=== PATIENT | female | born 1980 | race African-American/Black ===

== ENCOUNTER 2017-07-22 02:08 | Emergency (ER) | payer MEDICAID ==
[~2017-07-22 02:08] MED LIST: METR0.7528 VAGINAL; PREN1CAP7 PO
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
[2017-07-27 14:55] LABS: BATH SALTS (MDPV) UR NEG (NEG); ECSTASY (MDMA) UR NEG (NEG); HEROIN (6-ACETYLMORPHINE) UR NEG (NEG); K2 SPICE UR NEG (NEG); OBMETHADONE UR NEG (NEG); PHENCYCLIDINE URINE NEG (NEG)
[2017-07-27 14:56] LABS: GABAPENTIN UR NEG (NEG); HYDROMORPHONE U NEG (NEG)
[2017-07-31] MEDS ORDERED: ZANT150T2 PO (13:36)
[2017-07-31] MEDS ORDERED: [UNRECOGNIZED DRUG - CODE] IM (14:39)
[2017-08-21] MEDS ORDERED: [UNRECOGNIZED DRUG - CODE] IM (13:43)
[2017-09-03] MEDS ORDERED: [UNRECOGNIZED DRUG - CODE] IM (11:22)
== END 2017-07-22 03:30 | disposition home or self-care (01) ==
LOC: HOBED 02:08
DX: O99.612 Diseases of the digestive system complicating pregnancy, second trimester (principal); K42.9 Umbilical hernia without obstruction or gangrene; O34.219 Maternal care for unspecified type scar from previous cesarean delivery; Z3A.22 22 weeks gestation of pregnancy
CPT/HCPCS: 76815; 80307; 99284; G0481

== ENCOUNTER → 2017-08-14 | Outpatient (CLI) | payer MEDICAID ==
[~2017-08-14] MED LIST changes: -METR0.7528 VAGINAL; +ZANT150T2 PO; +[UNRECOGNIZED DRUG - CODE] IM
== END ==
LOC: HPND 12:47
PROVIDERS: ATTEND Obstetrics & Gynecology
DX: O09.522 Supervision of elderly multigravida, second trimester (principal); O99.332 Smoking (tobacco) complicating pregnancy, second trimester; O35.1XX0 Maternal care for (suspected) chromosomal abnormality in fetus, not applicable or unspecified
CPT/HCPCS: 76811

== ENCOUNTER 2017-11-14 08:54 | Inpatient (IN) | payer MEDICAID ==
[2017-11-14] VITALS (104 sets, daily range): BP systolic 107–187; BP diastolic 63–103; PULSE 52–102; RESP 18–22; TEMP 97.4–99.2; O2SAT 93–100
[~2017-11-14 08:54] MED LIST changes: +CIME300S4 PO; -[UNRECOGNIZED DRUG - CODE] IM
[2017-11-14] MEDS ORDERED: METHYLERGONOVINE MALEATE 0.2 MG/ML VIAL ONE (09:20)
[2017-11-14] MEDS ORDERED: LACTATED RINGER'S 1000 ML INJ 1,000 ML IV ONE (09:26)
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
[2017-11-14] MEDS: LACTATED RINGER'S 1000 ML INJ 1,000 ML IV SCH ×5 (09:56→23:16)
[2017-11-14 09:57] LABS: AUTOMATED NEUTROPHIL # 3.6 TH/MM3 (1.8-7.7); BASOPHIL % 0.3 % (0.0-2.0); EOSINOPHIL # 0.1 TH/MM3 (0-0.4); HEMATOCRIT 29.9 % (35.0-46.0); HEMOGLOBIN 9.7 GM/DL (11.6-15.3); LYMPH % 24.6 % (9.0-44.0); LYMPHOCYTE # 1.4 TH/MM3 (1.0-4.8); MEAN CELL VOLUME 88.2 FL (80.0-100.0); MEAN CORPUSCULAR HEMOGLOBIN 28.5 PG (27.0-34.0); MEAN CORPUSCULAR HGB CONC 32.4 % (32.0-36.0); MEAN PLATELET VOLUME 9.3 FL (7.0-11.0); MONO % 9.7 % (0.0-8.0); MONOCYTE # 0.5 TH/MM3 (0-0.9); NEUT % 64.4 % (16.0-70.0); PLATELET COUNT 168 TH/MM3 (150-450); RED BLOOD COUNT 3.39 MIL/MM3 (4.00-5.30); RED CELL DISTRIBUTION WIDTH 13.8 % (11.6-17.2); WHITE BLOOD COUNT 5.5 TH/MM3 (4.0-11.0)
[2017-11-14 09:59] LABS: BACTERIA, URINE RARE /hpf; BILIRUBIN, URINE NEG (NEG); BLOOD, URINE NEG (NEG); GLUCOSE,URINE NEG (NEG); HYALINE CAST, URINE 1 /lpf (RARE); KETONE, URINE NEG (NEG); MUCUS URINE FEW /lpf (OCC); NITRITE,URINE NEG (NEG); SQUAMOUS EPITHELIAL CELL URINE 8 /hpf (0-5); URINE COLOR YELLOW (YELLW/STRAW); URINE LEUKOCYTE ESTERASE TRACE (NEG)
[2017-11-14] MEDS ORDERED: MORPHINE SULFATE PF 5 MG/10 ML VIAL ONE (10:25)
[2017-11-14] MEDS ORDERED: ACETAMINOPHEN 1000 MG/100 ML 100 ML IV ONE (10:25)
[2017-11-14] MEDS ORDERED: ceFAZolin 2 GM PREMIX 50 ML IV SCH (10:30)
[2017-11-14] MEDS ORDERED: CITRIC ACID-SODIUM CITRATE LIQ 30 ML UDC PO SCH (11:00)
[2017-11-14] MEDS ORDERED: DEXAMETHASONE SOD PHOS 4 MG/ML VIAL IV ONE (12:00)
[2017-11-14] MEDS ORDERED: ONDANSETRON HCL 4 MG/2 ML VIAL IV ONE (12:00)
[2017-11-14] MEDS ORDERED: OXYTOCIN 10 UNIT/ML AMP IV ONE (12:00)
[2017-11-14] MEDS ORDERED: ePHEDrine/NS 25 MG/5 ML SYRINGE IV ONE (12:00)
[2017-11-14] MEDS ORDERED: LACTATED RINGER'S 1000 ML INJ 2,000 ML IV ONE (12:00)
--- NOTE | 2017-11-14 12:06 | PD.OB.DELI ---
Procedure Note Section Procedure Pre Op Diagnosis: (1) 39 weeks gestation of (2) Advanced maternal age in multigravida (3) Cocaine abuse affecting in third trimester (4) Tobacco use affecting in third trimester, antepartum (5) Previous delivery affecting , antepartum (6) Alcohol abuse affecting in third trimester (7) with plans to adopt out baby (8) Acquired syphilis Post Op Diagnosis: Performed by Shanel Valentino Procedure: Repeat Low Transverse Sec, Other (bilateral midsegment salpingectomy) Indication for delivery: Desired elective repeat Informed consent obtained: For anesthesia, For procedure Confirmed correct: Site, Time-out taken Anesthesia: Spinal Medication prior to procedure: As documented in eMAR, Antibiotics, IV Urinary catheter: Inserted using sterile technique, To dependent drainage Sterile preparation: Duraprep, With drapes to expose affected area Position: Supine with wedge to left side Operative Features Skin Incision: Pfannenstiel Uterine Incision: Low transverse w/knife / blunt ext Membranes Ruptured: Artificially, Appearance of fluid (clear) Presentation: Occiput anterior Delivery date: Nov 14, 2017 Delivery time: 11:07 Delivery of infant: Uneventful Infant: Female One Minute : 8 Five Minute : 9 Weight: 3260gm Status of infant: Viable Placenta delivered: Intact Medications: Oxytocin Estimated blood loss: 600cc Procedure tolerated: Well Maternal Condition: Stable Condition: Stable Shanel Valentino MD Nov 14, 2017 12:06
[2017-11-14] MEDS ORDERED: OXYTOCIN 30 UNITS-500ML PREMIX 500 ML IV ONE (12:15)
[2017-11-14] MEDS ORDERED: DOCUSATE SODIUM 50 MG/SENNA 8.6 MG TAB PO PRN (12:15)
[2017-11-14] MEDS ORDERED: SODIUM CHLORIDE 0.9% FLUSH 10 ML FLUSH IV FLUSH PRN ×2 (12:15→16:15)
[2017-11-14] MEDS ORDERED: oxyCODONE/ACETAMINOPHEN 5 MG/325 MG TAB PO PRN (12:15)
[2017-11-14] MEDS ORDERED: SIMETHICONE 80 MG CHEWABLE TAB PO PRN (12:15)
[2017-11-14] MEDS ORDERED: ACETAMINOPHEN 325 MG TAB PO PRN (12:15)
[2017-11-14] MEDS ORDERED: KETOROLAC TROMETHAMINE 60 MG/2 ML (IM) VIAL IM PRN (12:15)
[2017-11-14] MEDS ORDERED: ONDANSETRON HCL 4 MG/2 ML VIAL IV PUSH PRN (12:15)
[2017-11-14 12:33] LABS: RPR SCREEN FOR REFLEX NON-REACTIVE (NON-REACTVE)
--- NOTE | 2017-11-14 12:39 | MP ---
cc: SYL PERALTA M.D. DATE OF SURGERY 11/14/2017 SURGEON Syl Peralta MD PREOPERATIVE DIAGNOSES 1. 39 weeks gestation. 2. Previous section x3. 3. Advanced maternal age and multigravida. 4. Cocaine abuse affecting . 5. Tobacco use affecting . 6. Alcohol abuse affecting third trimester . 7. with plans to put the baby up for adoption. 8. Acquired syphilis treated x1 the during . POSTOPERATIVE DIAGNOSES 1. 39 weeks gestation. 2. Previous section x3. 3. Advanced maternal age and multigravida. 4. Cocaine abuse affecting . 5. Tobacco use affecting . 6. Alcohol abuse affecting third trimester . 7. with plans to put the baby up for adoption. 8. Acquired syphilis treated x1 the during . PROCEDURE 1. Repeat low transverse section without extension. 2. Bilateral mid-segment salpingectomy. ANESTHETIC Spinal. MEDICATIONS 2 grams of Ancef given preoperatively. COMPLICATIONS No complications. DRAINS Marshall to gravity. PATHOLOGY No pathology. FINDINGS 1. Normal uterus, tubes and ovaries. 2. Dense uterine adhesions noted from the lower uterine segment to the fascia. 3. female. Apgars were 8 and 9. Weight was 3260 grams. Vertex position with clear amniotic fluid. DESCRIPTION OF PROCEDURE The patient was taken back to the operating room, prepped and draped in sterile fashion, placed in dorsal supine position with a wedge to her left side. After adequate anesthetic was obtained, the patient had a very large, widened vertical scar that was removed from her skin and then incision was taken down to the fascia which was extended superiorly and inferiorly. The vesicouterine peritoneum was entered, extended superiorly and inferiorly also taking care to avoid traumatization to the bowel and the bladder. Large dense adhesions were noted in the lower segment which was taken down with the Bovie and with sharp dissection and the vesicouterine peritoneum was identified and noted to be well away from the field. A transverse hysterotomy incision was made bluntly, extended bilaterally. The 's head was delivered to the operative field after bag of water was ruptured, clear fluid was obtained. The rest of the body was delivered. The was handed off to the resuscitation team for subsequent care. 45-second cord clamping delay before clamping of the cord. Placenta was delivered intact spontaneously. The endometrial cavity was curetted with a moist laparotomy sponge. The hysterotomy incision was repaired using running locking #1 chromic suture. The large density lesions across the lower uterine segment had caused some bleeding into the serosa and the myometrium which was closed using running locking sutures of chromic. Attention was then directed to the fallopian tubes and, when a window was made in the mesosalpinx, two #1 chromic sutures were placed and the intervening 2-cm segment was removed. Good hemostasis was noted at this time. The patient had some oozing from the peritoneum from the takedown of adhesions. It was made hemostatic using the Bovie as well as Frandy placed topically. The fascia was closed with a #1 PDS, subcutaneous tissue was made hemostatic with the Bovie. Because of the large scar removal, some undermining of the skin bilaterally was undertaken so that the skin could closed without excessive tension. Plain gut was placed into the subcutaneous tissue to bring it together and then nasra were placed into the skin. The patient tolerated the procedure well. She has taken back to the recovery room good condition. MD HOMERO Hernandez/JOSE /11:55 AM /12:12 PM
[2017-11-14] MEDS ORDERED: OXYTOCIN 30 UNITS-500ML PREMIX 500 ML ONE (12:50)
[2017-11-14] MEDS ORDERED: EPIDURAL-DO NOT ADMINISTER ANTICOAGULANTS PRN (14:00)
[2017-11-14] MEDS ORDERED: EPIDURAL-DIPHENHYDRAMINE HCL 50 MG/ML VIAL IV PUSH PRN (14:00)
[2017-11-14] MEDS ORDERED: EPIDURAL-DIPHENHYDRAMINE HCL 50 MG CAP PO PRN (14:00)
[2017-11-14] MEDS ORDERED: EPIDURAL-NALOXONE HCL 0.4 MG/ML AMP IV PUSH PRN (14:00)
[2017-11-14] MEDS ORDERED: EPIDURAL-NO SYSTEMIC NARCOTICS PRN (14:00)
[2017-11-14] MEDS ORDERED: CALCIUM GLUCONATE 10% 1 GM/10 ML VIAL IV PUSH PRN (16:15)
[2017-11-14] MEDS ORDERED: MAGNESIUM SULFATE 4 GM PREMIX 100 ML IV ONE (16:15)
--- NOTE | 2017-11-14 16:49 | HHI.PR ---
Addendum to Inpatient Note Addendum Reason: Additional Documentation Additional Information Patient evaluated at bedside, noted to have BPs 150s/90s. She stated she felt dizzy earlier but this has resolved. No chest pain, shortness of breath. Notes legs might be swollen. Lungs clear to auscultation RRR no m/g/r LE not swollen out of proportion Reflexes patellae normal A/P: 37 year old [id number] post operative Day 0 <12hr, with elevated BPs, dizziness. Hx substance use complicated picture. Suspect pre-eclampsia vs chronic HTN vs acute substance withdrawal Will transfer back to for treatment of possible pre-E. CBC, CMP, uric acid ordered. Labetalol 20 mg IV q10 mins PRN SBP >150 DBP > 100 and will consider hydralizine 10 mg IV q20 m if BP does not respond to this. Will start Mg sulfate 4 gm IV x 1 at 300 ml/hr with 2gm/hr thereafter Close VS monitoring Cotrney Delgado MD R2 Nov 14, 2017 16:49
[2017-11-14 18:03] LABS: ALBUMIN 2.9 GM/DL (3.4-5.0); ALT (GPT) 56 U/L (10-53); AST (GOT) 54 U/L (15-37); BLOOD UREA NITROGEN 3 MG/DL (7-18); CHLORIDE 101 MEQ/L (98-107); CREATININE 0.38 MG/DL (0.50-1.00); GLOMERULAR FILTRATION RATE 232 ML/MIN (>89); GLUCOSE,RANDOM 88 MG/DL (74-106); SODIUM (NA) 137 MEQ/L (136-145)
[2017-11-14 18:06] LABS: ALKALINE PHOSPHATASE 92 U/L (45-117); TOTAL BILIRUBIN ADULT 0.7 MG/DL (0.2-1.0); TOTAL PROTEIN 7.6 GM/DL (6.4-8.2)
[2017-11-14] MEDS: MAGNESIUM SULFATE 40 GM PREMIX 1,000 ML IV SCH (18:07)
[2017-11-14] MEDS ORDERED: POTASSIUM CHLORIDE 10 MEQ CONTROLLED RELEASE TAB PO ONE (18:45)
[2017-11-14] MEDS: oxyCODONE/ACETAMINOPHEN 5 MG/325 MG TAB PO PRN (20:37)
[2017-11-14] MEDS: SODIUM CHLORIDE 0.9% FLUSH 10 ML FLUSH IV FLUSH SCH ×2 (21:00)
[2017-11-14] MEDS ORDERED: OXYTOCIN 30 UNITS-500ML PREMIX 500 ML IV PRN (22:15)
[2017-11-14] MEDS: LORazepam 2 MG/ML VIAL IV PUSH PRN (22:28)
[2017-11-15] VITALS (147 sets, daily range): BP systolic 119–162; BP diastolic 61–119; PULSE 63–98; RESP 16–20; TEMP 97.4–97.9; O2SAT 84–100
[2017-11-15] MEDS: LACTATED RINGER'S 1000 ML INJ 1,000 ML IV SCH (03:10)
[2017-11-15] MEDS: oxyCODONE/ACETAMINOPHEN 5 MG/325 MG TAB PO PRN ×2 (04:21→20:22)
[2017-11-15 05:53] LABS: AUTOMATED NEUTROPHIL # 5.9 TH/MM3 (1.8-7.7); BASOPHIL % 0.2 % (0.0-2.0); EOSINOPHIL % 0.6 % (0.0-4.0); HEMATOCRIT 30.4 % (35.0-46.0); HEMOGLOBIN 9.8 GM/DL (11.6-15.3); LYMPH % 15.6 % (9.0-44.0); LYMPHOCYTE # 1.2 TH/MM3 (1.0-4.8); MEAN CELL VOLUME 88.2 FL (80.0-100.0); MEAN CORPUSCULAR HEMOGLOBIN 28.5 PG (27.0-34.0); MEAN CORPUSCULAR HGB CONC 32.4 % (32.0-36.0); MEAN PLATELET VOLUME 9.4 FL (7.0-11.0); MONO % 5.2 % (0.0-8.0); MONOCYTE # 0.4 TH/MM3 (0-0.9); NEUT % 78.4 % (16.0-70.0); PLATELET COUNT 168 TH/MM3 (150-450); RED BLOOD COUNT 3.44 MIL/MM3 (4.00-5.30); RED CELL DISTRIBUTION WIDTH 13.4 % (11.6-17.2); WHITE BLOOD COUNT 7.5 TH/MM3 (4.0-11.0)
--- NOTE | 2017-11-15 08:06 | HHI.OB ---
Subjective Post Operative Day: 1 Remarks Postoperative day # 1. AFVSS overnight. BPs 120s/80s on magnesium. On magnesium since 5:30pm yesterday for elevated BPs and dizziness. Noted to have respiratory distress on re-evaluation ~0800 today, with patient stating she felt like something was in her chest. She has felt well throughout the night and up to this point. Lungs showing crackles bilaterally notable at midlung and below. Incision not draining. Decreased lochia. Denies dysuria. No breast tenderness. Baby was given up for adoption. No nausea or vomiting. Patient has not yet had a bowel movement. OAmbulating well. Denies calf pain. Objective Vitals/I&O Vital Signs Date Time Temp Pulse Resp B/P (MAP) Pulse Ox O2 Delivery O2 Flow Rate FiO2 11/15/17 07:46 86 147/93 (111) 11/15/17 07:45 91 86 11/15/17 07:21 97.5 18 11/15/17 07:20 75 98 11/15/17 07:00 78 133/85 (101) 11/15/17 07:00 19 11/15/17 06:00 74 134/87 (103) 11/15/17 05:56 18 11/15/17 05:30 18 11/15/17 05:11 73 134/88 (103) 11/15/17 05:00 78 20 11/15/17 04:10 90 97 11/15/17 04:05 94 98 11/15/17 04:01 96 120/61 (80) 11/15/17 04:00 20 11/15/17 04:00 93 100 11/15/17 03:55 71 98 11/15/17 03:50 69 98 11/15/17 03:45 70 98 11/15/17 03:40 67 97 11/15/17 03:35 66 96 11/15/17 03:30 66 97 11/15/17 03:25 65 98 11/15/17 03:20 65 100 11/15/17 03:15 83 99 11/15/17 03:10 84 100 11/15/17 03:05 69 100 11/15/17 03:00 65 20 143/81 (101) 100 11/15/17 03:00 65 11/15/17 02:55 69 100 11/15/17 02:50 65 100 11/15/17 02:45 67 99 11/15/17 02:40 65 99 11/15/17 02:35 66 99 11/15/17 02:30 89 100 11/15/17 02:25 98 100 11/15/17 02:20 64 99 11/15/17 02:15 63 99 11/15/17 02:10 63 99 11/15/17 02:05 64 99 11/15/17 02:00 66 11/15/17 02:00 16 11/15/17 02:00 63 123/83 (96) 99 11/15/17 01:55 63 99 11/15/17 01:50 63 99 11/15/17 01:45 66 99 11/15/17 01:40 66 99 11/15/17 01:35 64 99 11/15/17 01:30 63 99 11/15/17 01:25 65 98 11/15/17 01:20 66 98 11/15/17 01:15 70 99 11/15/17 01:10 68 98 11/15/17 01:05 69 98 11/15/17 01:00 66 18 119/78 (92) 99 11/15/17 01:00 72 11/15/17 00:55 66 99 11/15/17 00:50 68 98 11/15/17 00:45 66 99 11/15/17 00:40 66 99 11/15/17 00:35 66 99 11/15/17 00:30 66 99 11/15/17 00:25 69 99 11/15/17 00:20 66 99 11/15/17 00:15 67 100 11/15/17 00:10 71 100 11/15/17 00:05 74 100 11/15/17 00:02 71 142/97 (112) 11/15/17 00:01 71 162/98 (119) 11/15/17 00:00 97.4 11/15/17 00:00 20 11/15/17 00:00 85 100 11/14/17 23:55 73 99 11/14/17 23:50 70 96 11/14/17 23:45 71 97 11/14/17 23:40 70 96 11/14/17 23:35 71 98 11/14/17 23:30 74 96 11/14/17 23:25 74 96 11/14/17 23:20 71 99 11/14/17 23:15 74 97 11/14/17 23:10 74 96 11/14/17 23:05 72 93 11/14/17 23:00 73 149/78 (101) 93 11/14/17 23:00 70 11/14/17 22:55 75 93 11/14/17 22:50 75 97 11/14/17 22:45 82 95 11/14/17 22:40 73 99 11/14/17 22:35 72 100 11/14/17 22:34 20 11/14/17 22:30 88 98 11/14/17 22:25 84 97 11/14/17 22:15 86 98 11/14/17 22:10 93 98 11/14/17 22:05 80 97 11/14/17 22:00 18 11/14/17 22:00 79 11/14/17 22:00 78 142/89 (106) 100 11/14/17 21:55 87 100 11/14/17 21:55 87 100 11/14/17 21:50 79 100 11/14/17 21:45 83 100 11/14/17 21:40 94 96 11/14/17 21:35 78 96 11/14/17 21:30 83 95 11/14/17 21:25 76 97 11/14/17 21:20 80 97 11/14/17 21:15 92 98 11/14/17 21:10 82 96 11/14/17 21:05 77 94 11/14/17 21:00 76 11/14/17 21:00 81 149/86 (107) 95 11/14/17 20:55 80 97 11/14/17 20:50 78 97 11/14/17 20:45 92 97 11/14/17 20:40 88 96 11/14/17 20:37 18 11/14/17 20:35 97 98 11/14/17 20:30 89 96 11/14/17 20:25 88 96 11/14/17 20:20 92 96 11/14/17 20:10 75 98 11/14/17 20:05 77 98 11/14/17 20:00 86 146/87 (106) 99 11/14/17 20:00 78 11/14/17 19:55 76 99 11/14/17 19:50 96 98 11/14/17 19:45 82 100 11/14/17 19:40 82 100 11/14/17 19:35 83 100 11/14/17 19:31 18 11/14/17 19:30 83 100 11/14/17 19:25 75 100 11/14/17 19:16 97.4 18 11/14/17 19:14 70 152/96 (114) 11/14/17 19:10 74 100 11/14/17 19:05 73 100 11/14/17 19:01 76 152/83 (106) 11/14/17 19:00 69 100 11/14/17 18:55 70 100 11/14/17 18:50 68 100 11/14/17 18:45 71 100 11/14/17 18:40 79 100 11/14/17 18:35 100 11/14/17 18:35 75 11/14/17 18:30 65 100 11/14/17 18:29 97.5 18 11/14/17 18:25 75 100 11/14/17 18:20 65 100 11/14/17 18:15 79 100 11/14/17 18:10 72 100 11/14/17 18:05 70 148/99 (115) 100 11/14/17 18:05 67 11/14/17 18:01 73 148/91 (110) 11/14/17 18:00 78 100 11/14/17 17:57 73 164/86 (112) 11/14/17 17:55 71 100 11/14/17 17:51 71 171/103 (125) 11/14/17 17:50 61 100 11/14/17 17:48 62 165/91 (115) 11/14/17 17:45 70 100 11/14/17 17:41 70 11/14/17 17:41 150/98 (115) 11/14/17 17:40 67 100 11/14/17 17:35 67 100 11/14/17 17:30 69 100 11/14/17 17:25 100 11/14/17 17:25 66 11/14/17 17:20 102 11/14/17 17:20 96 11/14/17 17:18 20 11/14/17 17:16 62 187/93 (124) 11/14/17 16:00 61 152/100 (117) 11/14/17 16:00 20 11/14/17 14:26 52 157/82 (107) 11/14/17 14:20 18 11/14/17 13:45 59 20 154/96 (115) 11/14/17 13:45 97.6 11/14/17 13:00 155/85 (108) 11/14/17 12:56 71 19 11/14/17 12:56 100 11/14/17 12:54 98.0 11/14/17 12:45 20 100 11/14/17 12:45 154/89 (110) 11/14/17 12:45 70 11/14/17 12:30 69 149/83 (105) 11/14/17 12:30 22 100 11/14/17 12:14 20 100 11/14/17 12:14 73 11/14/17 12:14 137/94 (108) 11/14/17 12:00 99.2 76 20 134/63 (86) 99 11/14/17 09:45 97.5 11/14/17 09:42 73 107/80 (89) 11/14/17 09:40 82 11/14/17 09:30 78 Result Diagram: 11/15/17 0520 11/14/17 1705 Objective Remarks GENERAL: Well-nourished, well-developed female in no apparent distress. CARDIOVASCULAR: Regular rate and rhythm without murmurs, gallops, or rubs. RESPIRATORY: Crackles in bilateral mid- and lower lung jones. ABDOMEN/GI: Abdomen soft, non-tender, bowel sounds present. Incision: Clean, dry and intact. Fundus: Firm, non-tender at umbilicus. GENITOURINARY: Light to moderate bleeding. EXTREMITIES: No cyanosis or edema, non-tender, without signs of DVT. NEURO: reflexes 1+ in patellae bilaterally. Good muscle tone UE and LEs but has 4/5 strength. Medications and IVs Current Medications Medications (Trade) Dose Ordered Sig/Nic Route Start Time Stop Time Status Last Admin Lactated Ringer's 1,000 ml @ 150 mls/hr Q6H40M IV 11/14/17 09:56 11/14/17 09:56 Cefazolin Sodium/ Dextrose 50 ml @ 100 mls/hr BIOINFORMATICS SCIENTIST IV 11/14/17 10:30 11/18/17 10:29 11/14/17 10:37 (Bicitra Liq) 30 ml BIOINFORMATICS SCIENTIST PO 11/14/17 11:00 11/18/17 10:59 11/14/17 10:36 Lactated Ringer's 1,000 ml @ 100 mls/hr Q10H IV 11/14/17 17:10 11/15/17 13:09 Oxytocin 500 ml @ 100 mls/hr UNSCH X1 PRN IV 11/14/17 22:15 11/15/17 22:14 (NS Flush) 2 ml BID IV FLUSH 11/14/17 21:00 (NS Flush) 2 ml UNSCH PRN IV FLUSH 11/14/17 12:15 (Mylicon Chew) 80 mg QID PRN PO 11/14/17 12:15 (Tylenol) 650 mg Q6H PRN PO 11/14/17 12:15 (Motrin) 600 mg Q6H PRN PO 11/14/17 12:15 (Toradol Inj) 30 mg Q6H PRN IM 11/14/17 12:15 11/15/17 12:14 11/14/17 18:26 (Percocet 5-325 Mg) 1 tab Q4H PRN PO 11/14/17 12:15 (Percocet 5-325 Mg) 2 tab Q4H PRN PO 11/14/17 12:15 11/15/17 04:21 (Ella-Colace) 2 tab Q12H PRN PO 11/14/17 12:15 (M-M-R Ii Inj) 0.5 ml ONCE ONCE SQ 11/15/17 16:00 11/15/17 16:01 (Boostrix Inj) 0.5 ml ONCE ONCE IM 11/15/17 16:00 11/15/17 16:01 (Zofran Inj) 4 mg Q6H PRN IV PUSH 11/14/17 12:15 Miscellaneous Information NO SYSTEMIC NARCOTICS TO BE GIVEN FO... UNSCH PRN .XX 11/14/17 14:00 11/15/17 13:59 (Narcan Inj) 0.4 mg UNSCH PRN IV PUSH 11/14/17 14:00 11/15/17 13:59 (Benadryl Inj) 25 mg Q6H PRN IV PUSH 11/14/17 14:00 11/15/17 13:59 11/14/17 16:30 (Benadryl) 50 mg Q6H PRN PO 11/14/17 14:00 11/15/17 13:59 11/15/17 06:00 Miscellaneous Information ALL NURSING DEPARTMENTS UNSCH PRN .XX 11/14/17 14:00 11/15/17 13:59 Lactated Ringer's 1,000 ml @ 75 mls/hr [id number] IV 11/14/17 16:03 11/14/17 17:28 (NS Flush) 2 ml UNSCH PRN IV FLUSH 11/14/17 16:15 (NS Flush) 2 ml BID IV FLUSH 11/14/17 21:00 Magnesium Sulfate 1,000 ml @ 50 mls/hr Q20H IV 11/14/17 16:03 11/14/17 18:07 (Calcium Gluconate Inj) 1 gm UNSCH PRN IV PUSH 11/14/17 16:15 (Ativan Inj) 1 mg Q8HR PRN IV PUSH 11/14/17 20:15 11/14/17 22:28 Assessment/Plan Assessment and Plan 37 year old [id number] post operative Day 1 repeat CS and BTL, with elevated BPs now on Magnesium, dizziness. Hx substance use complicating clinical picture. Respiratory Distress Hypoxic on room air to 86%, on 2L at 96% Symptoms improved with O2 Unclear etiology. Suspect pulmonary edema vs PNA vs reactive airways Duonebs x 1, to continue if symptoms improve Incentive spirometry Will order PA and lateral CXR to further assess Hold magnesium for now Elevated BPs Suspect pre-eclampsia vs chronic HTN vs acute substance withdrawal Magnesium initiated 1730 on 11/14/17 CBC, CMP, uric acid ordered and wnl aside from anemia at expected level given post-operative BPs wnl on magnesium but will hold for now given respiratory distress. Close VS monitoring Syphilis Reports remote history with treatment +RPR 08/2017, titers not available from remote treatment period RPR nonreactive 11/14/17 -Continue routine care. -Percocet and Motrin PRN pain. -Encouraged OOB. Advised pelvic rest for 6 wks. Will need a f/u appt. in 1 wk for incision check and BPs. -Re: ctrl, had BTL -Anticipate discharge 1-3 days. Social History tobacco use MJ use EtOHism does not have custody of 3 children Social work consult placed, baby reportedly up for adoption WILFRID Valentino Discharge Planning 2-3 days post CS Cortney Delgado MD R2 Nov 15, 2017 08:06
[2017-11-15] MEDS ORDERED: RESP: ALBUTEROL 2.5 MG/IPRATROPIUM 0.5 MG NEB (SCH) NEB ONE (08:15)
[2017-11-15] MEDS: SODIUM CHLORIDE 0.9% FLUSH 10 ML FLUSH IV FLUSH SCH ×2 (09:00)
--- NOTE | 2017-11-15 09:33 | RADRPT ---
EXAM DATE/TIME: 11/15/2017 08:27 [place] COMPARISON: No previous studies available for comparison. INDICATIONS : Shortness of breath post . MEDICAL HISTORY : None. SURGICAL HISTORY : section. Tubal ligation. ENCOUNTER: Initial ACUITY: 1 day PAIN SCORE: 0/10 LOCATION: Bilateral chest FINDINGS: The cardiac silhouette is enlarged in transverse diameter. There is fissural thickening involving the minor fissure with right basilar edema versus pneumonia. No pleural effusions are identified. CONCLUSION: 1. Right basilar edema versus pneumonia Tl Vasquez MD on November 15, 2017 at 9:30 Board Certified Radiologist. This report was verified electronically.
[2017-11-15] MEDS ORDERED: POTASSIUM CHLORIDE 10 MEQ CONTROLLED RELEASE TAB PO ONE (10:15)
[2017-11-15] MEDS ORDERED: FUROSEMIDE 20 MG/2 ML VIAL IV PUSH ONE (10:15)
--- NOTE | 2017-11-15 10:29 | HHI.FPPN ---
Addendum to progress note ADDENDUM Additional information Update: Respiratory distress improved, patient satting 99% on room air, BP 130/90 after duoneb tx x 1. Patient is comfortably sitting in room, talking on the phone. CXR showed pulmonary congestion, no cardiomegaly noted. Mag discontinued. Hypokalemia this AM @ 3.1. Assessment: Pulmonary edema secondary to fluid overload. Plan: - Lasix 20 mg x1 - KCl 40 mg x1, recheck serum K+ in 3 hours. Supplement as needed - No further MgSO4 DW Dr. Galarza and July Alicia MD R1 Nov 15, 2017 10:29
[2017-11-15] MEDS: RESP: ALBUTEROL 2.5 MG/IPRATROPIUM 0.5 MG NEB (SCH) NEB ×3 (10:30→22:38)
[2017-11-15] MEDS: MAGNESIUM SULFATE 40 GM PREMIX 1,000 ML IV SCH (11:48)
--- NOTE | 2017-11-15 12:55 | PD.PSY.CON ---
Provisional Diagnosis Admission Date Nov 14, 2017 at 08:54 [place] I. Paranoid schizophrenia, history of anxiety, cocaine, cannabis and alcohol use disorder [place] II. Deferred [place] III. , high blood pressure History of Present Illness Service Psychiatry Consult Requested By Medical team Reason for Consult History of schizophrenia Primary Care Physician No Primary Care Physician HPI The patient is a 37 year old woman, domiciled alone in [facility] , single, unemployed, on SSI process, mother of 4 kids, the 4 of them are in the foster care system, with reported psychiatric history of schizophrenia, cocaine, cannabis and alcohol use disorder, 2 previous psychiatric hospitalizations, no previous suicidal attempts, she is not in psychotropics at this moment, no engaged in outpatient care, medical history of syphilis in the past, hospitalized for , post operative Day 1 repeat CS and BTL, with elevated BPs now on Magnesium, dizziness. Hx substance use complicating clinical picture. Consulted to psychiatry to assess schizophrenia and the need of starting medications. Chart was reviewed. On psychiatric evaluation patient is calm, cooperative and pleasant. Patient states that she feels fine, she explained that she is not keeping the baby and she is given for adoption. However, she denies depressive symptoms, she denies anhedonia, denies hopelessness, denies helplessness, denies suicidal and homicidal ideation. She denies visual and auditory hallucinations. Does report problems sleeping at night, some anxiety at the time. Patient reports long history of schizophrenia , in the past she used to her voices and become very anxious, she has been self- medicating with cocaine and marijuana and with alcohol sometimes. She is stopped going to [facility] for follow-up due to her . She says that she has been stable in the past in trazodone, Seroquel and BuSpar. She clarifies that when she is on medication she doesn't need drugs. She says that she is motivated to stop drugs and continue with psychotropics and outpatient care. She is oriented 3, no fluctuation of consciousness, no gross cognitive impairment present. The patient reports occasional use of cocaine, daily use of marijuana, also occasional use of alcohol. Review of Systems Constitutional: DENIES: Diaphoretic episodes, Fatigue, Fever, Weight gain, Weight loss, Chills, Dizziness, Change in appetite, Night Sweats Endocrine: DENIES: Abnorml menstrual pattern, Heat/cold intolerance, Polydipsia , Polyuria, Polyphagia Eyes: DENIES: Blurred vision, Diplopia, Eye inflammation, Eye pain, Vision loss , Photosensitivity, Double Vision Ears, nose, mouth, throat: DENIES: Tinnitus, Hearing loss, Vertigo, Nasal discharge, Oral lesions, Throat pain, Hoarseness, Ear Pain, Running Nose, Epistaxis, Sinus Pain, Toothache, Odynophagia Respiratory: DENIES: Apneas, Cough, Snoring, Wheezing, Hemoptysis, Sputum production, Shortness of breath Cardiovascular: DENIES: Chest pain, Palpitations, Syncope, Dyspnea on Exertion , PND, Lower Extremity Edema, Orthopnea, Claudication Gastrointestinal: DENIES: Abdominal pain, Black stools, Bloody stools, Constipation, Diarrhea, Nausea, Vomiting, Difficulty Swallowing, Anorexia Musculoskeletal: DENIES: Joint pain, Muscle aches, Stiffness, Joint Swelling, Back pain, Neck pain Integumentary: DENIES: Abnormal pigmentation, Pruritus, Rash, Nail changes, Breast masses, Breast skin changes, Nipple discharge Hematologic/lymphatic: DENIES: Bruising, Lymphadenopathy Immunologic/allergic: DENIES: Eczema, Urticaria Neurologic: DENIES: Abnormal gait, Headache, Localized weakness, Paresthesias, Seizures, Speech Problems, Tremor, Poor Balance Psychiatric: COMPLAINS OF: Anxiety Past Family Social History Coded Allergies: No Known Allergies (Verified Adverse Reaction, Unknown, 11/14/17) Active Scripts Cimetidine HCl (Cimetidine) 300 Mg/5 Ml Solution, 5 ML PO DAILY for 30 Days, # 100 ML 3 Refills Prov:Carol Skinner CNM [facility] 09/19/17 Ranitidine (Zantac) 150 Mg Tab, 150 MG PO BID for Reduce Stomach Acid, #60 TAB 6 Refills Prov:Caroline Luis [facility] 07/31/17 W/O Vit A W/ Fe Fumar (Citranatal [place]) 27-1-260 Mg Cap, 1 CAP PO DAILY for Nutritional Supplement, #30 CAP 0 Refills Prov:Carol Skinner CNM [facility] 07/03/17 Current Medications Medications (Trade) Dose Ordered Sig/Nic Route Start Time Stop Time Status Last Admin Lactated Ringer's 1,000 ml @ 150 mls/hr Q6H40M IV 11/14/17 09:56 11/14/17 09:56 Cefazolin Sodium/ Dextrose 50 ml @ 100 mls/hr PROPERTY ACCOUNTANT IV 11/14/17 10:30 11/18/17 10:29 11/14/17 10:37 (Bicitra Liq) 30 ml PROPERTY ACCOUNTANT PO 11/14/17 11:00 11/18/17 10:59 11/14/17 10:36 Lactated Ringer's 1,000 ml @ 100 mls/hr Q10H IV 11/14/17 17:10 11/15/17 13:09 Oxytocin 500 ml @ 100 mls/hr UNSCH X1 PRN IV 11/14/17 22:15 11/15/17 22:14 (NS Flush) 2 ml BID IV FLUSH 11/14/17 21:00 11/15/17 09:00 (NS Flush) 2 ml UNSCH PRN IV FLUSH 11/14/17 12:15 (Mylicon Chew) 80 mg QID PRN PO 11/14/17 12:15 (Tylenol) 650 mg Q6H PRN PO 11/14/17 12:15 (Motrin) 600 mg Q6H PRN PO 11/14/17 12:15 (Percocet 5-325 Mg) 1 tab Q4H PRN PO 11/14/17 12:15 11/15/17 12:09 (Percocet 5-325 Mg) 2 tab Q4H PRN PO 11/14/17 12:15 11/15/17 04:21 (Ella-Colace) 2 tab Q12H PRN PO 11/14/17 12:15 (M-M-R Ii Inj) 0.5 ml ONCE ONCE SQ 11/15/17 16:00 11/15/17 16:01 (Boostrix Inj) 0.5 ml ONCE ONCE IM 11/15/17 16:00 11/15/17 16:01 (Zofran Inj) 4 mg Q6H PRN IV PUSH 11/14/17 12:15 Miscellaneous Information NO SYSTEMIC NARCOTICS TO BE GIVEN FO... UNSCH PRN .XX 11/14/17 14:00 11/15/17 13:59 (Narcan Inj) 0.4 mg UNSCH PRN IV PUSH 11/14/17 14:00 1/4/18 13:59 (Benadryl Inj) 25 mg Q6H PRN IV PUSH 11/14/17 14:00 11/15/17 13:59 11/14/17 16:30 (Benadryl) 50 mg Q6H PRN PO 11/14/17 14:00 11/15/17 13:59 11/15/17 06:00 Miscellaneous Information ALL NURSING DEPARTMENTS UNSCH PRN .XX 11/14/17 14:00 11/15/17 13:59 Lactated Ringer's 1,000 ml @ 75 mls/hr [id number] IV 11/14/17 16:03 11/14/17 17:28 (NS Flush) 2 ml UNSCH PRN IV FLUSH 11/14/17 16:15 (NS Flush) 2 ml BID IV FLUSH 11/14/17 21:00 Magnesium Sulfate 1,000 ml @ 50 mls/hr Q20H IV 11/14/17 16:03 11/14/17 18:07 (Calcium Gluconate Inj) 1 gm UNSCH PRN IV PUSH 11/14/17 16:15 (Ativan Inj) 1 mg Q8HR PRN IV PUSH 11/14/17 20:15 11/14/17 22:28 (Duoneb Neb) 1 ampule Q6HR NEB NEB 11/15/17 10:00 Family Psych History No family psychiatric history Social History Patient was born and raised in [place], she lives in [facility] alone, she is single, unemployed, she is in [employer] process, her highest level of education is ninth grade Patient's Strengths (min. 2) Verbal communication Physical Exam No tremors, no EPS, no psychomotor agitation or retardation, no stiffness Vital Signs Vital Signs Date Time Temp Pulse Resp B/P (MAP) Pulse Ox O2 Delivery O2 Flow Rate FiO2 11/15/17 12:30 88 99 11/15/17 12:00 136/119 (125) 11/15/17 12:00 97.8 11/15/17 11:33 20 11/15/17 08:18 Nasal Cannula 2.00 Lab Results Test 11/14/17 17:05 11/15/17 05:20 Blood Urea Nitrogen 3 MG/DL Creatinine 0.38 MG/DL Random Glucose 88 MG/DL Total Protein 7.6 GM/DL Albumin 2.9 GM/DL Calcium Level 9.0 MG/DL Uric Acid 1.9 MG/DL Alkaline Phosphatase 92 U/L Aspartate Amino Transf (AST/SGOT) 54 U/L Alanine Aminotransferase (ALT/SGPT) 56 U/L Total Bilirubin 0.7 MG/DL Sodium Level 137 MEQ/L Potassium Level 3.1 MEQ/L Chloride Level 101 MEQ/L Carbon Dioxide Level 27.0 MEQ/L Anion Gap 9 MEQ/L Estimat Glomerular Filtration Rate 232 ML/MIN White Blood Count 7.5 TH/MM3 Red Blood Count 3.44 MIL/MM3 Hemoglobin 9.8 GM/DL Hematocrit 30.4 % Mean Corpuscular Volume 88.2 FL Mean Corpuscular Hemoglobin 28.5 PG Mean Corpuscular Hemoglobin Concent 32.4 % Red Cell Distribution Width 13.4 % Platelet Count 168 TH/MM3 Mean Platelet Volume 9.4 FL Neutrophils (%) (Auto) 78.4 % Lymphocytes (%) (Auto) 15.6 % Monocytes (%) (Auto) 5.2 % Eosinophils (%) (Auto) 0.6 % Basophils (%) (Auto) 0.2 % Neutrophils # (Auto) 5.9 TH/MM3 Lymphocytes # (Auto) 1.2 TH/MM3 Monocytes # (Auto) 0.4 TH/MM3 Eosinophils # (Auto) 0.0 TH/MM3 Basophils # (Auto) 0.0 TH/MM3 CBC Comment DIFF FINAL Differential Comment Mental Status Examination Appearance: Appropriate Consciousness: Alert Orientation: x4 Motor Activity: Normal gait Speech: Unremarkable Language: Adequate Fund of Knowledge: Adequate Attention and Concentration: Adequate Memory: Unremarkable Mood: Appropriate Affect: Appropriate Thought Process & Associations: Intact Thought Content: Appropriate Hallucination Type: None Delusion Type: None Suicidal Ideation: No Suicidal Plan: No Suicidal Intention: No Homicidal Ideation: No Homicidal Plan: No Homicidal Intention: No Insight: Adequate Judgment: Adequate Assessment & Plan Problem List: (1) Chronic schizophrenia ICD Codes: F20.9 - Schizophrenia, unspecified Assessment & Plan: On psychiatric evaluation today the patient does not present any acute, concerning for significant objective or subjective symptomatology of depression, ady or psychosis. The patient denies suicidal and homicidal ideation, she denies visual and auditory hallucinations. She does report some level of insomnia and anxiety in the hospital. Patient reports that she has been stable in the past in trazodone, Seroquel and BuSpar. She seems to be motivated to restart his medication and continue outpatient psychiatric care in [facility]. When she has been in this medication she has needed to use less drugs, and at this point she seems to be motivated to engage in a psychotropic regimen and avoid the use of drugs. I will start Seroquel 50 mg twice a day and trazodone 50 mg at bedtime. She will continue her psychiatric care in [facility]. Brief supportive psychotherapy, motivation and psychoeducation provided. I will follow-up in Assessment & Plan Estimated LOS: days Marco A Pierre MD Nov 15, 2017 12:55
[2017-11-15] MEDS: IBUPROFEN 600 MG TAB PO PRN ×2 (14:45→20:22)
[2017-11-15] MEDS ORDERED: MEASLES, MUMPS, RUBELLA VACCINE 0.5 ML VIAL SQ ONE (16:00)
[2017-11-15] MEDS ORDERED: DIPHTH/TETANUS/ACEL PERTUSSIS (BOOSTER) 0.5 ML VIAL/PFS IM ONE (16:00)
[2017-11-15] MEDS: traZODone HCL 50 MG TAB PO SCH (22:11)
[2017-11-15] MEDS: LORazepam 2 MG/ML VIAL IV PUSH PRN (23:11)
[2017-11-16] VITALS (8 sets, daily range): BP systolic 111–151; BP diastolic 60–91; PULSE 79–99; RESP 15–18; TEMP 97.6–99.3; O2SAT 97–100
[2017-11-16] MEDS: oxyCODONE/ACETAMINOPHEN 5 MG/325 MG TAB PO PRN ×4 (00:01→21:17)
[2017-11-16] MEDS: KETOROLAC TROMETHAMINE 30 MG/ML (IVP) VIAL IV PUSH ONE ×2 (00:27→08:39)
[2017-11-16] MEDS: RESP: ALBUTEROL 2.5 MG/IPRATROPIUM 0.5 MG NEB (SCH) NEB ×4 (03:50→22:26)
[2017-11-16] MEDS: SODIUM CHLORIDE 0.9% FLUSH 10 ML FLUSH IV FLUSH SCH ×3 (08:37→21:22)
--- NOTE | 2017-11-16 08:49 | HHI.OB ---
Subjective Post Day: 2 Remarks Patient reports pain that made her scream yesterday. Was worse with moving. States she is too uncomfortable to leave hospital early. Would like to stay another day. Reports no other new symptoms or complaints. Objective Vitals/I&O Vital Signs Date Time Temp Pulse Resp B/P (MAP) Pulse Ox O2 Delivery O2 Flow Rate FiO2 11/16/17 05:13 98.3 80 18 135/80 (98) 11/16/17 00:45 82 112/75 (87) 11/16/17 00:45 97.9 16 11/15/17 19:58 97.7 80 18 147/92 (110) 11/15/17 17:00 97.9 18 97 11/15/17 17:00 99 11/15/17 16:50 136/84 (101) 11/15/17 16:50 77 11/15/17 16:00 18 11/15/17 15:23 80 143/96 (112) 11/15/17 15:00 19 11/15/17 14:46 84 149/91 (110) 11/15/17 13:35 95 100 11/15/17 13:30 98 99 11/15/17 13:25 96 98 11/15/17 13:20 92 100 11/15/17 13:17 19 11/15/17 13:15 89 99 11/15/17 13:12 78 152/89 (110) 11/15/17 13:10 85 97 11/15/17 13:05 89 98 11/15/17 13:00 20 11/15/17 12:35 88 100 11/15/17 12:31 91 11/15/17 12:30 88 99 11/15/17 12:25 88 100 11/15/17 12:20 84 100 11/15/17 12:15 90 100 11/15/17 12:10 90 100 11/15/17 12:05 81 100 11/15/17 12:00 84 11/15/17 12:00 87 136/119 (125) 99 11/15/17 12:00 97.8 11/15/17 11:55 85 100 11/15/17 11:50 86 100 11/15/17 11:45 86 99 11/15/17 11:35 77 99 11/15/17 11:33 20 11/15/17 11:32 70 144/86 (105) 11/15/17 11:30 76 133/105 (114) 99 11/15/17 11:30 82 11/15/17 11:25 73 99 11/15/17 11:20 80 98 11/15/17 11:15 73 99 11/15/17 11:10 92 100 11/15/17 11:05 97 11/15/17 11:05 76 11/15/17 11:00 19 11/15/17 11:00 84 142/90 (107) 100 11/15/17 11:00 74 11/15/17 10:55 85 100 11/15/17 10:50 84 100 11/15/17 10:45 76 100 11/15/17 10:42 80 144/98 (113) 11/15/17 10:41 86 11/15/17 10:40 84 100 11/15/17 10:35 90 100 11/15/17 10:30 80 11/15/17 10:30 77 129/85 (100) 98 11/15/17 10:25 78 99 11/15/17 10:20 80 98 11/15/17 10:15 92 99 11/15/17 10:10 92 98 11/15/17 10:05 87 98 11/15/17 10:00 78 97 11/15/17 10:00 75 135/90 (105) 11/15/17 09:55 84 98 11/15/17 09:53 88 152/97 (115) 11/15/17 09:50 77 96 11/15/17 09:45 77 97 11/15/17 09:40 76 97 11/15/17 09:35 85 98 11/15/17 09:31 87 150/109 (123) 11/15/17 09:30 82 99 11/15/17 09:25 86 97 11/15/17 09:20 77 94 11/15/17 09:19 20 11/15/17 09:15 76 11/15/17 09:15 85 145/94 (111) 96 11/15/17 09:10 89 97 11/15/17 09:05 94 96 11/15/17 09:00 19 11/15/17 09:00 98 95 11/15/17 08:55 87 92 11/15/17 08:50 79 91 11/15/17 08:45 75 11/15/17 08:45 80 148/90 (109) 92 11/15/17 08:40 93 94 11/15/17 08:35 78 95 Objective Remarks GENERAL: Well-nourished, well-developed patient. CARDIOVASCULAR: Regular rate and rhythm without murmurs, gallops, or rubs. RESPIRATORY: Breath sounds equal bilaterally. No accessory muscle use. ABDOMEN/GI: Abdomen soft, non-tender. Fundus: Firm, non-tender at umbilicus. GENITOURINARY: Light to moderate bleeding. Incision site clean and dry. EXTREMITIES: No cyanosis or edema, non-tender, without signs of DVT. Medications and IVs Current Medications Medications (Trade) Dose Ordered Sig/Nic Route Start Time Stop Time Status Last Admin Lactated Ringer's 1,000 ml @ 150 mls/hr Q6H40M IV 11/14/17 09:56 11/14/17 09:56 Cefazolin Sodium/ Dextrose 50 ml @ 100 mls/hr SCALE MANAGER IV 11/14/17 10:30 11/18/17 10:29 11/14/17 10:37 (Bicitra Liq) 30 ml SCALE MANAGER PO 11/14/17 11:00 11/18/17 10:59 11/14/17 10:36 (NS Flush) 2 ml BID IV FLUSH 11/14/17 21:00 11/15/17 09:00 (NS Flush) 2 ml UNSCH PRN IV FLUSH 11/14/17 12:15 (Mylicon Chew) 80 mg QID PRN PO 11/14/17 12:15 (Tylenol) 650 mg Q6H PRN PO 11/14/17 12:15 (Motrin) 600 mg Q6H PRN PO 11/14/17 12:15 11/15/17 20:22 (Percocet 5-325 Mg) 1 tab Q4H PRN PO 11/14/17 12:15 11/15/17 12:09 (Percocet 5-325 Mg) 2 tab Q4H PRN PO 11/14/17 12:15 11/16/17 05:44 (Ella-Colace) 2 tab Q12H PRN PO 11/14/17 12:15 11/15/17 20:22 (Zofran Inj) 4 mg Q6H PRN IV PUSH 11/14/17 12:15 Lactated Ringer's 1,000 ml @ 75 mls/hr [id number] IV 11/14/17 16:03 11/14/17 17:28 (NS Flush) 2 ml UNSCH PRN IV FLUSH 11/14/17 16:15 (NS Flush) 2 ml BID IV FLUSH 11/14/17 21:00 Magnesium Sulfate 1,000 ml @ 50 mls/hr Q20H IV 11/14/17 16:03 11/14/17 18:07 (Calcium Gluconate Inj) 1 gm UNSCH PRN IV PUSH 11/14/17 16:15 (Ativan Inj) 1 mg Q8HR PRN IV PUSH 11/14/17 20:15 11/15/17 23:11 (Duoneb Neb) 1 ampule Q6HR NEB NEB 11/15/17 10:00 11/16/17 03:50 (Desyrel) 50 mg HS PO 11/15/17 21:00 11/15/17 22:11 (SEROquel) 50 mg BID@09,12 PO 11/16/17 09:00 Assessment/Plan Assessment and Plan 37 year old [id number] post operative Day 2 repeat CS and BTL, with elevated BPs now on Magnesium, dizziness. Hx substance use complicating clinical picture. Elevated BPs - improved - 147/92-112/75 overnight - patient should f/u with PCP for assessing BP -Continue routine care. -Percocet and Motrin, and IV Toradol PRN pain. Ensure patient is receiving pain medication. -Encouraged OOB. Advised pelvic rest for 6 wks. Will need a f/u appt. in 1 wk for incision check and BPs. -Re: ctrl, had BTL Hx of cocaine abuse: Social work consult placed, baby reportedly up for adoption Schizophrenia: Seen by Psych. Placed on Seroquel 50 mg twice a day and trazodone 50 mg at bedtime. WILFRID Galarza Discharge Planning D/C likely tomorrow July Maldonado MD R1 Nov 16, 2017 08:49
[2017-11-16] MEDS ORDERED: QUEtiapine FUMARATE 25 MG TAB PO SCH (09:00)
[2017-11-16] MEDS: LACTATED RINGER'S 1000 ML INJ 1,000 ML IV SCH ×3 (09:50→15:09)
[2017-11-16] MEDS: MAGNESIUM SULFATE 40 GM PREMIX 1,000 ML IV SCH (09:51)
--- NOTE | 2017-11-16 12:21 | HHI.PYPN ---
Subjective Remarks The patient was seen today for psychiatric reevaluation, patient is calm, cooperative, pleasant. She reports good mood, she denies mood symptoms, denies suicidal and homicidal ideation, she denies visual and auditory hallucinations. Patient says that she is motivated to continue the medical recommendations, to avoid drugs and to continue psychiatric care in [facility]. Review of Systems Except as stated in HPI: all other systems reviewed are Neg Mental Status Examination Appearance: Appropriate Consciousness: Alert Orientation: x4 Motor Activity: Normal gait Speech: Unremarkable Language: Adequate Fund of Knowledge: Adequate Attention and Concentration: Adequate Memory: Unremarkable Mood: Appropriate Affect: Appropriate Thought Process & Associations: Intact Thought Content: Appropriate Hallucination Type: None Delusion Type: None Suicidal Ideation: No Suicidal Plan: No Suicidal Intention: No Homicidal Ideation: No Homicidal Plan: No Homicidal Intention: No Insight: Adequate Judgment: Adequate Results Labs Test 11/15/17 13:40 Potassium Level 3.5 MEQ/L Vitals/IOs Vital Signs Date Time Temp Pulse Resp B/P (MAP) Pulse Ox O2 Delivery O2 Flow Rate FiO2 11/16/17 10:24 83 111/60 (77) 11/16/17 08:00 97.6 18 98 11/15/17 08:18 Nasal Cannula 2.00 Assessment & Plan Problem List: (1) Chronic schizophrenia ICD Codes: F20.9 - Schizophrenia, unspecified Assessment & Plan: The patient was seen today for psychiatric reevaluation. She is psychiatrically stable to be discharged with the current psychotropic regimen. She will continue her psychiatric follow-up in [facility]. Brief supportive psychotherapy provided. Patient was wildly educated about the importance of avoiding psycho active illegal drugs. Assessment & Plan Estimated LOS: days Justification for Cont. Inpt. No psychiatric admission indicated. Marco A Pierre MD Nov 16, 2017 12:21
[2017-11-16] MEDS: IBUPROFEN 600 MG TAB PO PRN ×2 (15:18→21:17)
[2017-11-16] MEDS ORDERED: KETOROLAC TROMETHAMINE 30 MG/ML (IVP) VIAL IV PUSH PRN (16:45)
[2017-11-16] MEDS: traZODone HCL 50 MG TAB PO SCH (20:52)
[2017-11-16] MEDS: QUEtiapine FUMARATE 25 MG TAB PO SCH (20:53)
[2017-11-17] VITALS: BP 105/63; PULSE 85; RESP 16; TEMP 97.7; O2SAT 97
[2017-11-17] MEDS: RESP: ALBUTEROL 2.5 MG/IPRATROPIUM 0.5 MG NEB (SCH) NEB ×2 (03:12→11:00)
[2017-11-17 04:00] VITALS: BP 137/94; PULSE 84; RESP 18; TEMP 97.4; O2SAT 98
[2017-11-17] MEDS: IBUPROFEN 600 MG TAB PO PRN ×2 (04:37→10:57)
[2017-11-17] MEDS: oxyCODONE/ACETAMINOPHEN 5 MG/325 MG TAB PO PRN ×2 (04:37→10:57)
[2017-11-17 08:00] VITALS: BP 132/81; PULSE 73; RESP 15; TEMP 97.7; O2SAT 100
--- NOTE | 2017-11-17 08:55 | HHI.OB ---
Subjective Post Operative Day: 3 Remarks Patient seen and examined this morning. AFVSS overnight. Postoperative day #3. Patient reports abdominal pain around the umbilicus, stable in comparison to yesterday and overnight. Denies fevers. Denies any significant bleeding or drainage from incision site. Decreased lochia. Denies dysuria. No breast tenderness. Appetite good. No nausea or vomiting. Endorses flatus. + bowel movement. Ambulating well. Denies calf pain, chest pain, shortness of breath, or cough. Objective Vitals/I&O Vital Signs Date Time Temp Pulse Resp B/P (MAP) Pulse Ox O2 Delivery O2 Flow Rate FiO2 11/17/17 08:00 97.7 11/17/17 08:00 73 15 132/81 (98) 100 11/17/17 04:00 137/94 (108) 11/17/17 04:00 97.4 84 18 98 11/17/17 00:00 97.7 85 16 105/63 (77) 97 11/16/17 20:00 93 18 138/76 (96) 97 11/16/17 20:00 97.8 11/16/17 16:00 142/89 (106) 11/16/17 16:00 99.3 99 18 98 11/16/17 12:00 97.8 79 15 132/80 (97) 100 11/16/17 10:24 83 111/60 (77) Result Diagram: 11/15/17 0520 11/15/17 1340 Objective Remarks GENERAL: Well-nourished, well-developed female in no apparent distress. CARDIOVASCULAR: Regular rate and rhythm without murmurs, gallops, or rubs. RESPIRATORY: CTAB, no w/r/r ABDOMEN/GI: Abdomen soft, non-tender, bowel sounds present. Incision: Clean, dry and intact. Fundus: Firm, non-tender at umbilicus. GENITOURINARY: Light to moderate bleeding. EXTREMITIES: No cyanosis or edema, non-tender, without signs of DVT. NEURO: AOx3. conservation of resources commissioner grossly intact. Motor grossly normal. Medications and IVs Current Medications Medications (Trade) Dose Ordered Sig/Nic Route Start Time Stop Time Status Last Admin Lactated Ringer's 1,000 ml @ 150 mls/hr Q6H40M IV 11/14/17 09:56 11/14/17 09:56 Cefazolin Sodium/ Dextrose 50 ml @ 100 mls/hr CENTRAL SERVICE TECH IV 11/14/17 10:30 11/18/17 10:29 11/14/17 10:37 (Bicitra Liq) 30 ml CENTRAL SERVICE TECH PO 11/14/17 11:00 11/18/17 10:59 11/14/17 10:36 (Mylicon Chew) 80 mg QID PRN PO 11/14/17 12:15 (Tylenol) 650 mg Q6H PRN PO 11/14/17 12:15 (Motrin) 600 mg Q6H PRN PO 11/14/17 12:15 11/17/17 04:37 (Percocet 5-325 Mg) 1 tab Q4H PRN PO 11/14/17 12:15 11/15/17 12:09 (Percocet 5-325 Mg) 2 tab Q4H PRN PO 11/14/17 12:15 11/17/17 04:37 (Ella-Colace) 2 tab Q12H PRN PO 11/14/17 12:15 11/15/17 20:22 (Zofran Inj) 4 mg Q6H PRN IV PUSH 11/14/17 12:15 Lactated Ringer's 1,000 ml @ 75 mls/hr [id number] IV 11/14/17 16:03 11/14/17 17:28 (NS Flush) 2 ml UNSCH PRN IV FLUSH 11/14/17 16:15 (NS Flush) 2 ml BID IV FLUSH 11/14/17 21:00 Magnesium Sulfate 1,000 ml @ 50 mls/hr Q20H IV 11/14/17 16:03 11/14/17 18:07 (Calcium Gluconate Inj) 1 gm UNSCH PRN IV PUSH 11/14/17 16:15 (Ativan Inj) 1 mg Q8HR PRN IV PUSH 11/14/17 20:15 11/15/17 23:11 (Duoneb Neb) 1 ampule Q6HR NEB NEB 11/15/17 10:00 11/17/17 03:12 (Desyrel) 50 mg HS PO 11/15/17 21:00 11/16/17 20:52 (Toradol Inj) 30 mg Q6HR PRN IV PUSH 11/16/17 16:45 11/21/17 16:44 (SEROquel) 50 mg BID PO 11/16/17 21:00 11/16/17 20:53 Assessment/Plan Assessment and Plan 37 year old now postoperative day #3 s/p repeat and BTL. Elevated BPs - improved - BPs ranging 100s-150s/60s-90s past 24 hours - Patient will f/u with PCP for continued BP monitoring care - Continue routine care - Percocet and Motrin prn pain - Encouraged OOB. Advised pelvic rest for 6 wks. Will need a f/u appt. in 1 wk for incision and BP check - Re: ctrl, s/p BTL Hx of cocaine abuse: - Social work consult placed, baby reportedly up for adoption Schizophrenia: - Psychiatry consulted. Placed on Seroquel 50 mg twice a day and trazodone 50 mg at bedtime. - Psychiatrically stable for discharge with f/u in [facility] Anticipate discharge today hira Dexter Discharge Planning Anticipate discharge today Puneet Varela MD R2 Nov 17, 2017 08:55
[2017-11-17] MEDS: SODIUM CHLORIDE 0.9% FLUSH 10 ML FLUSH IV FLUSH SCH (09:00)
[2017-11-17] MEDS: QUEtiapine FUMARATE 25 MG TAB PO SCH (09:16)
--- NOTE | 2017-11-17 09:32 | HHI.DCPOC ---
Discharge Care Plan Diagnosis: (1) care following delivery (2) Chronic schizophrenia (3) Cocaine abuse affecting in third trimester Report Symptoms to Your Doctor -Temperature above 100.5 degrees -Redness, of incision or excessive or foul smelling drainage -Unusual pain or calf pain -Increased vaginal bleeding -Painful or difficulty urinating -Feelings of extreme sadness or anxiety after 2 weeks Goals to Promote Your Health * To prevent worsening of your condition and complications, and to maintain your health at the optimal level follow up with your psychiatrist as an outpatient at [facility] and follow up with your OB provider within one week of hospital discharge for an incision check. Directions to Meet Your Goals Take your medications as prescribed Follow your dietary instruction Follow activity as directed Ensure plenty of rest for recovery Drink fluids for hydration Keep your appointments as scheduled Take your immunizations and boosters as scheduled If your symptoms worsen call your PCP, if no PCP go to Urgent Care Center or Emergency Room Smoking is Dangerous to Your Health. Avoid second hand smoke Call the 24-hour crisis hotline for domestic abuse at Puneet Varela MD R2 Nov 17, 2017 09:32
[2017-11-17] MEDS ORDERED: PERI PO (09:34)
[2017-11-17] MEDS ORDERED: SERO25TA PO (09:34)
[2017-11-17] MEDS ORDERED: IBUP-232 PO (09:34)
[2017-11-17] MEDS ORDERED: OXYC1TAB63 PO (09:34)
== END 2017-11-17 12:05 | disposition home or self-care (01) | DRG 765 ==
LOC: H2EB 08:54 → H1EA 13:37 → H2EA 17:10 → H1EA 11-15 15:36
PROVIDERS: ADMIT Obstetrics & Gynecology Obstetrics; ATTEND Obstetrics & Gynecology Obstetrics
PROC: 10D00Z1 Extraction of Products of Conception, Low, Open Approach (ICD-10-PCS; principal; 2017-11-14)
PROC: 0UB70ZZ Excision of Bilateral Fallopian Tubes, Open Approach (ICD-10-PCS; 2017-11-14)
DX: O34.211 Maternal care for low transverse scar from previous cesarean delivery (principal); O99.324 Drug use complicating childbirth; J81.1 Chronic pulmonary edema; F20.9 Schizophrenia, unspecified; E87.70 Fluid overload, unspecified; Z37.0 Single live birth; Z3A.39 39 weeks gestation of pregnancy; F14.10 Cocaine abuse, uncomplicated; Z30.2 Encounter for sterilization; O99.334 Smoking (tobacco) complicating childbirth; O99.344 Other mental disorders complicating childbirth; R03.0 Elevated blood-pressure reading, without diagnosis of hypertension; R06.03 Acute respiratory distress; R09.02 Hypoxemia; O99.314 Alcohol use complicating childbirth; O99.824 Streptococcus B carrier state complicating childbirth; N73.6 Female pelvic peritoneal adhesions (postinfective); Z86.19 Personal history of other infectious and parasitic diseases
CPT/HCPCS: 59025; 71045; 80053; 80307; 81001; 84132; 84550; 85025; 86592; 86850; 86900; 86901; 88302; 94150; 94640; 94664; J0131; J0690; J1100; J1200; J1885; J1940; J2060; J2210; J2274; J2405; J2590; J3475; J7120; Q0163

== ENCOUNTER 2018-03-19 08:29 | Emergency (ER) | payer MEDICAID ==
[2018-03-19] MEDS ORDERED: SODIUM CHLORIDE 0.9% FLUSH 10 ML FLUSH IV FLUSH (09:00)
[2018-03-19 09:51] LABS: AUTOMATED NEUTROPHIL # 3.9 TH/MM3 (1.8-7.7); BASOPHIL # 0.1 TH/MM3 (0-0.2); EOSINOPHIL # 0.2 TH/MM3 (0-0.4); EOSINOPHIL % 2.9 % (0.0-4.0); HEMATOCRIT 36.6 % (35.0-46.0); HEMO FLAGS DIFF FINAL; HEMOGLOBIN 11.9 GM/DL (11.6-15.3); LYMPH % 23.9 % (9.0-44.0); LYMPHOCYTE # 1.4 TH/MM3 (1.0-4.8); MEAN CELL VOLUME 88.2 FL (80.0-100.0); MEAN CORPUSCULAR HEMOGLOBIN 28.8 PG (27.0-34.0); MEAN CORPUSCULAR HGB CONC 32.6 % (32.0-36.0); MEAN PLATELET VOLUME 9.4 FL (7.0-11.0); MONO % 8.4 % (0.0-8.0); MONOCYTE # 0.5 TH/MM3 (0-0.9); NEUT % 63.8 % (16.0-70.0); PLATELET COUNT 229 TH/MM3 (150-450); RED BLOOD COUNT 4.15 MIL/MM3 (4.00-5.30); RED CELL DISTRIBUTION WIDTH 13.9 % (11.6-17.2); WHITE BLOOD COUNT 6.1 TH/MM3 (4.0-11.0)
[2018-03-19 10:00] LABS: APTT (PATIENT) 26.2 SEC (24.3-30.1)
[2018-03-19 10:03] LABS: ALBUMIN 3.2 GM/DL (3.4-5.0); ALT (GPT) 22 U/L (10-53); ANION GAP 8 MEQ/L (5-15); AST (GOT) 19 U/L (15-37); BICARBONATE 22.7 MEQ/L (21.0-32.0); BLOOD UREA NITROGEN 11 MG/DL (7-18); CALCIUM 8.2 MG/DL (8.5-10.1); CHLORIDE 109 MEQ/L (98-107); CREATININE 0.61 MG/DL (0.50-1.00); GLOMERULAR FILTRATION RATE 134 ML/MIN (>89); GLUCOSE,RANDOM 78 MG/DL (74-106); LIPASE 125 U/L (73-393); POTASSIUM 3.6 MEQ/L (3.5-5.1); SODIUM (NA) 140 MEQ/L (136-145)
[2018-03-19 10:07] LABS: ALKALINE PHOSPHATASE 68 U/L (45-117); BETA HCG QUANT LESS THAN 1 MIU/ML (0-5); TOTAL BILIRUBIN ADULT 0.3 MG/DL (0.2-1.0); TOTAL PROTEIN 7.1 GM/DL (6.4-8.2)
[2018-03-19] MEDS: SODIUM CHLOR 0.9% 1000 ML INJ 1,000 ML IV (10:34)
[2018-03-19] MEDS: ONDANSETRON HCL 4 MG/2 ML VIAL IVP (10:36)
[2018-03-19] MEDS: MORPHINE SULFATE 4 MG/ML INJ IV PUSH (10:37)
== END 2018-03-19 11:25 | disposition home or self-care (01) ==
LOC: NEPC 08:29
DX: K43.9 Ventral hernia without obstruction or gangrene (principal); F20.9 Schizophrenia, unspecified
CPT/HCPCS: 74019; 80053; 83690; 84702; 85025; 85610; 85730; 96374; 96375; 99284-25